=== PATIENT | male | born 1990 | race African-American/Black ===

== ENCOUNTER 2017-12-05 04:32 | Emergency (ER) | payer SELFPAY ==
[~2017-12-05] VITALS: Ht 175.3 cm; Wt 78.6 kg
[2017-12-05 04:43] VITALS: BP 118/72; TEMP 98.6
[2017-12-05 06:04] VITALS: PULSE 89
== END 2017-12-05 06:05 | disposition home or self-care (01) ==
LOC: COL.ER 04:32
DX: R36.9 Urethral discharge, unspecified (principal); F17.210 Nicotine dependence, cigarettes, uncomplicated; Z86.19 Personal history of other infectious and parasitic diseases
CPT/HCPCS: J0696

== ENCOUNTER 2018-04-22 12:15 | Emergency (ER) | payer SELFPAY ==
[~2018-04-22] VITALS: Ht 170.2 cm; Wt 88.2 kg
[2018-04-22 12:28] VITALS: BP 108/61; PULSE 93; TEMP 98.9
== END 2018-04-22 13:35 | disposition home or self-care (01) ==
LOC: COL.ER 12:15
DX: S62.511A Displaced fracture of proximal phalanx of right thumb, initial encounter for closed fracture (principal); Y04.0XXA Assault by unarmed brawl or fight, initial encounter

== ENCOUNTER 2018-04-27 11:10 | Day surgery (SDC) | payer MEDICAID ==
[~2018-04-27] VITALS: Ht 172.7 cm; Wt 87.7 kg
[2018-04-27 11:57] VITALS: BP 122/85; PULSE 70; TEMP 98.1
[2018-04-27 15:28] VITALS: BP 118/81; PULSE 67; TEMP 97.7
[2018-04-27 15:43] VITALS: BP 118/81; PULSE 68
[2018-04-27 15:58] VITALS: BP 105/67; PULSE 65
== END 2018-04-27 16:58 | disposition home or self-care (01) ==
LOC: SDCO 11:10
DX: S53.449A Ulnar collateral ligament sprain of unspecified elbow, initial encounter (principal); Y04.0XXA Assault by unarmed brawl or fight, initial encounter
CPT/HCPCS: J0690; J2250; J2405; J2704; J2795; J3010; J7120

== ENCOUNTER 2019-01-10 02:13 | Emergency (ER) | payer MEDICAID ==
[~2019-01-10] VITALS: Ht 172.7 cm; Wt 81.8 kg
[2019-01-10 02:15] VITALS: TEMP 97.9
[2019-01-10 08:00] VITALS: BP 107/53; PULSE 90
== END 2019-01-10 08:02 | disposition home or self-care (01) ==
LOC: COL.ER 02:13
DX: F10.129 Alcohol abuse with intoxication, unspecified (principal); Y90.8 Blood alcohol level of 240 mg/100 ml or more
CPT/HCPCS: J2405; J7030

== ENCOUNTER 2019-04-16 14:14 | Emergency (ER) | payer OTHER ==
[~2019-04-16] VITALS: Ht 170.2 cm; Wt 84.1 kg
[2019-04-16 14:33] VITALS: TEMP 98
[2019-04-16 16:52] VITALS: BP 110/69; PULSE 96
== END 2019-04-16 16:53 | disposition home or self-care (01) ==
LOC: COL.ER 14:14
DX: S01.511A Laceration without foreign body of lip, initial encounter (principal); Z93.3 Colostomy status; W20.8XXA Other cause of strike by thrown, projected or falling object, initial encounter

== ENCOUNTER 2019-06-07 00:03 | Emergency (ER) | payer SELFPAY ==
[~2019-06-07] VITALS: Ht 170.2 cm; Wt 81.8 kg
[2019-06-07 00:20] VITALS: BP 124/74; TEMP 98.1
[2019-06-07] MEDS ORDERED: ZITHROMAX 250M250 MG PO (01:52)
[2019-06-07 02:08] VITALS: PULSE 86
== END 2019-06-07 02:15 | disposition home or self-care (01) ==
LOC: COL.ER 00:03
DX: J01.90 Acute sinusitis, unspecified (principal)

== ENCOUNTER 2020-06-03 17:55 | Emergency (ER) | payer SELFPAY ==
[~2020-06-03] VITALS: Ht 172.7 cm; Wt 81.8 kg
[~2020-06-03 17:55] MED LIST: ZITHROMAX 250M250 MG PO
[2020-06-03 18:24] VITALS: TEMP 98.6
[2020-06-03 20:55] VITALS: BP 115/80; PULSE 98
== END 2020-06-03 20:57 | disposition home or self-care (01) ==
LOC: COL.ER 17:55
DX: Z71.1 Person with feared health complaint in whom no diagnosis is made (principal); Z88.0 Allergy status to penicillin

== ENCOUNTER → 2021-01-24 | Emergency (ER) | payer SELFPAY ==
[~2021-01-24] VITALS: Ht 172.7 cm; Wt 81.8 kg
[2021-01-24 11:26] VITALS: BP 105/81; TEMP 98.1
[2021-01-24 12:00] VITALS: PULSE 95
== END ==
LOC: COL.ER 11:19
DX: M70.21 Olecranon bursitis, right elbow (principal); R05 Cough; F17.210 Nicotine dependence, cigarettes, uncomplicated; Z88.0 Allergy status to penicillin

== ENCOUNTER 2021-02-03 20:48 | Emergency (ER) | payer SELFPAY ==
[~2021-02-03] VITALS: Ht 172.7 cm; Wt 81.8 kg
[2021-02-03 20:59] VITALS: TEMP 97.2
[2021-02-04 00:09] VITALS: BP 124/78; PULSE 82
== END 2021-02-04 00:09 | disposition home or self-care (01) ==
LOC: COL.ER 20:48
DX: M70.21 Olecranon bursitis, right elbow (principal); Z88.0 Allergy status to penicillin; W22.8XXA Striking against or struck by other objects, initial encounter

== ENCOUNTER 2021-04-27 15:07 | Emergency (ER) | payer SELFPAY ==
[~2021-04-27] VITALS: Ht 172.7 cm; Wt 85.9 kg
[2021-04-27 15:28] VITALS: BP 113/74; PULSE 95; TEMP 98.1
== END 2021-04-27 15:53 | disposition home or self-care (01) ==
LOC: COL.ER 15:07
DX: R06.7 Sneezing (principal)

== ENCOUNTER 2021-09-30 00:51 | Emergency (ER) | payer SELFPAY ==
[~2021-09-30] VITALS: Ht 170.2 cm; Wt 81.8 kg
[2021-09-30 02:20] VITALS: BP 1118/60; PULSE 100; TEMP 99.5
== END 2021-09-30 02:20 | disposition home or self-care (01) ==
LOC: COL.ER 00:51
DX: U07.1 COVID-19 (principal); F17.210 Nicotine dependence, cigarettes, uncomplicated

== ENCOUNTER 2022-02-15 23:34 | Emergency (ER) | payer SELFPAY ==
[~2022-02-15] VITALS: Ht 172.7 cm; Wt 85.5 kg
[2022-02-15 23:40] VITALS: BP 134/98
[2022-02-16 00:30] VITALS: PULSE 81
== END 2022-02-16 00:30 | disposition home or self-care (01) ==
LOC: COL.ER 23:34
DX: T24.211A Burn of second degree of right thigh, initial encounter (principal); T21.26XA Burn of second degree of male genital region, initial encounter; T31.0 Burns involving less than 10% of body surface; Z28.310 Unvaccinated for COVID-19; Y27.2XXA Contact with hot fluids, undetermined intent, initial encounter